=== PATIENT | male | born 1955 | race Caucasian/White ===

== ENCOUNTER 2016-11-13 13:00 | Outpatient (RCR) ==
[2014-12-07 17:34] VITALS: BMI 24.3
--- NOTE | 2016-11-04 09:42 | RS.OPPTDN ---
Subjective Date of Note: 11/04/16 Visit #: 6 Date of Evaluation: 10/20/16 Payer Source: Insurance Treatment Diagnosis: Neck and low back pain Current Subjective/complaints:: Patient reports neck pain has worsened over the past few days. Says that he has had burning to both arms yesterday all day. Pain Assessment - Pain Description Pain Location: neck Current Pain Intensity: "higher today" - Treatment Modality: Ultrasound Parameters/Method Applied: 1.5 w/cm2 x 10 mins to bilateral UT continuous PRIOR to traction Patient Position: Sitting - Heat/Cryotherapy Treatment: Hot Pack (cervical x 20 mins in sitting) - Traction Treatment Method: Mechanical, Intermittent, Cervical Patient Position: Supine Amount of Force Applied: 18-19 Hold Time: 30 Rest Time: 5 Duration of treatment: 20 Traction Treatment Comment: 2 steps Interventions - Exercise/Activities/Manual Therapy Exercises/Activities: Independent with cervical ROM, Reviewed postural techniques and strengthening Manual Therapy: NA HOME EXERCISE PROGRAM: Gentle cervical AROM all directions as tolerated in PAIN FREE ROM,avoid excessive cervical extension. - Charges Total Direct Minutes: 10 Total Treatment Time: 50 Procedures billed for this date of service:: hp, mechanical traction, u/s Assessment: Patient continues with mod to severe neck pain and radicular symptoms of burning to both arms. He maintains mod increase in muscle tone throughout bilateral UT, MT, and LT. Traction providing temporary relief at present. Patient Education: Education of diagnosis, Body/Joint mechanics, Home Exercise Program, Home Safety, Activity Modification, Education of Plan of Care Patient demonstrates compliance with HEP?: Yes Short Term Goals Goal #1: Pt independent and compliant with basic HEP. Goal to be met by: 11/03/16 Progress towards Goal:: Met Goal #2: Muscle tone in bilateral upper traps decreased to minimal. Goal to be met by: 11/03/16 Progress towards Goal:: Progressing Goal #3: Neck pain at rest <5/10. Goal to be met by: 11/03/16 Progress towards Goal:: Partially Met Goal #4: Bilateral SLR 40-45 degrees. Goal to be met by: 11/11/16 (N/A) Penitentiary Goals Goal #1: Pt knows/able to continue HEP to maintain level of function at discharge. Goal to be met by: 11/24/16 Progress towards goal: Partially Met Goal #2: Neck Disability score improved to 12. Goal to be met by: 11/24/16 Goal #3: Pt able to perform home and work activities with minimal neck pain. Goal to be met by: 11/24/16 Progress towards goal: Progressing Goal #4: Pt to demonstrate good postural awareness. Goal to be met by: 11/24/16 Progress towards goal: Partially Met Plan PLAN OF CARE EXPIRES ON:: 11/24/16 ORDER # VISITS AND/OR THROUGH DATE: 11/24/16 PLAN: Continue Plan of Care
--- NOTE | 2016-11-06 14:58 | RS.OPPTDN ---
Subjective Date of Note: 11/06/16 Visit #: 7 Date of Evaluation: 10/20/16 Payer Source: Insurance Treatment Diagnosis: Neck and low back pain Current Subjective/complaints:: Patient reports the neck is about the same,but less frequent pain into the UE's. Pain Assessment - Pain Description Pain Location: neck Pain Description: Dull, Aching Current Pain Intensity: 5/10 - Heat/Cryotherapy Treatment: Hot Pack (20 mins. prior to traction) - Traction Treatment Method: Mechanical, Intermittent, Cervical Patient Position: Supine Amount of Force Applied: 19-20# Hold Time: 30 secs. Rest Time: 5 secs. Duration of treatment: 20 mins. Interventions - Exercise/Activities/Manual Therapy Exercises/Activities: Independent with cervical ROM, Reviewed postural techniques and strengthening Total minutes of Exercise: 0 Manual Therapy: NA Total minutes of Manual Therapy: 0 HOME EXERCISE PROGRAM: Gentle cervical AROM all directions as tolerated in PAIN FREE ROM,avoid excessive cervical extension. - Charges Total Direct Minutes: 0 Total Treatment Time: 40 Procedures billed for this date of service:: hp,traction Assessment: Patient has less radiculopathy in the UE's ,but cervical ROM and upper trap tone unchanged today.He is guarded with cervical motion,and reports the prolonged positions with the neck in extension at work elevate his pain. Patient Education: Body/Joint mechanics, Activity Modification, Education of Plan of Care Patient demonstrates compliance with HEP?: Yes Short Term Goals Goal #1: Pt independent and compliant with basic HEP. Goal to be met by: 11/03/16 Progress towards Goal:: Met Goal #2: Muscle tone in bilateral upper traps decreased to minimal. Goal to be met by: 11/03/16 Progress towards Goal:: No Change Goal #3: Neck pain at rest <5/10. Goal to be met by: 11/03/16 (5/10 today) Progress towards Goal:: Partially Met Goal #4: Bilateral SLR 40-45 degrees. Goal to be met by: 11/11/16 (N/A) [employer] Operations Goals Goal #1: Pt knows/able to continue HEP to maintain level of function at discharge. Goal to be met by: 11/24/16 Progress towards goal: Partially Met Goal #2: Neck Disability score improved to 12. Goal to be met by: 11/24/16 Goal #3: Pt able to perform home and work activities with minimal neck pain. Goal to be met by: 11/24/16 Progress towards goal: Progressing Goal #4: Pt to demonstrate good postural awareness. Goal to be met by: 11/24/16 Progress towards goal: Partially Met Plan PLAN OF CARE EXPIRES ON:: 11/24/16 ORDER # VISITS AND/OR THROUGH DATE: 11/24/16 PLAN: Continue Plan of Care
--- NOTE | 2016-11-10 16:15 | RS.OPPTDN ---
Subjective Date of Note: 11/10/16 Visit #: 8 Date of Evaluation: 10/20/16 Payer Source: Insurance Treatment Diagnosis: Neck and low back pain Current Subjective/complaints:: Reports the neck pain does not vary much , comparing when he has to work or not work.He agrees the traction seems to be the most beneficial.When he exercises ,he reports he has constant grinding in his neck,regardless of which motion. Pain Assessment - Pain Description Pain Location: neck Pain Description: Dull, Aching Current Pain Intensity: 5/10 - Heat/Cryotherapy Treatment: Hot Pack (20 mins. prior to traction) Interventions - Exercise/Activities/Manual Therapy Exercises/Activities: Independent with cervical ROM, Reviewed postural techniques and strengthening Total minutes of Exercise: 0 Manual Therapy: NA Total minutes of Manual Therapy: 0 HOME EXERCISE PROGRAM: Gentle cervical AROM all directions as tolerated in PAIN FREE ROM,avoid excessive cervical extension. - Charges Total Direct Minutes: 0 Total Treatment Time: 40 Procedures billed for this date of service:: hp,traction Assessment: Patient reports the traction gives him temporary relief,but the duration of relief is unpredictable.we discussed initiating D/C plan as his rehab potential is limited,based upon results of previous sessions. Patient Education: Education of diagnosis, Body/Joint mechanics, Home Exercise Program, Home Safety, Activity Modification, Education of Plan of Care Patient demonstrates compliance with HEP?: Yes Short Term Goals Goal #1: Pt independent and compliant with basic HEP. Goal to be met by: 11/03/16 Progress towards Goal:: Met Goal #2: Muscle tone in bilateral upper traps decreased to minimal. Goal to be met by: 11/03/16 Progress towards Goal:: No Change Goal #3: Neck pain at rest <5/10. Goal to be met by: 11/03/16 (5/10 today) Progress towards Goal:: Partially Met Correction Goals Goal #1: Pt knows/able to continue HEP to maintain level of function at discharge. Goal to be met by: 11/24/16 Progress towards goal: Partially Met Goal #2: Neck Disability score improved to 12. Goal to be met by: 11/24/16 Goal #3: Pt able to perform home and work activities with minimal neck pain. Goal to be met by: 11/24/16 Progress towards goal: Progressing Goal #4: Pt to demonstrate good postural awareness. Goal to be met by: 11/24/16 Progress towards goal: Partially Met Plan PLAN OF CARE EXPIRES ON:: 11/24/16 ORDER # VISITS AND/OR THROUGH DATE: 11/24/16 PLAN: Continue Plan of Care
--- NOTE | 2016-11-12 09:30 | RS.OPPTDN ---
Subjective Date of Note: 11/12/16 Visit #: 9 Date of Evaluation: 10/20/16 Payer Source: Insurance Treatment Diagnosis: Neck and low back pain Current Subjective/complaints:: Patient reports very minimal temporary benefit from traction. States today his is hurting mostly in his middle back. States he had a bad day yesterday. States he continues to hurt more after working a 12 hour shift. Pain Assessment - Pain Description Pain Location: neck Pain Description: Dull, Aching Current Pain Intensity: 5/10 - Heat/Cryotherapy Treatment: Hot Pack (x 15 mins to cervical spine in sitting prior to mechanical traction ) - Traction Treatment Method: Mechanical, Intermittent, Cervical Patient Position: Supine Amount of Force Applied: 20 lbs. Hold Time: 30 sec Rest Time: 5 sec Duration of treatment: 20 mins Traction Treatment Comment: no complaints or issues following traction treatment Interventions - Exercise/Activities/Manual Therapy Exercises/Activities: Independent with cervical ROM, Patient given green and blue theraband for scapular retraction and bilateral shoulder extension for postural strengthening. Also demonstrated and advised to perform HS stretching for low back. Total minutes of Exercise: X 8 mins Manual Therapy: NA HOME EXERCISE PROGRAM: Gentle cervical AROM all directions as tolerated in PAIN FREE ROM,avoid excessive cervical extension. Green and blue theraband for scap retraction and bilateral shoulder extension. - Charges Total Direct Minutes: 8 mins Total Treatment Time: 43 Procedures billed for this date of service:: hp, traction, ex Assessment: Patient wants to continue one more visit. Demonstrates receptive attitude toward postural exercises. Patient Education: Education of diagnosis, Body/Joint mechanics, Home Exercise Program, Activity Modification, Education of Plan of Care Patient demonstrates compliance with HEP?: Yes (ROM excercises) Short Term Goals Goal #1: Pt independent and compliant with basic HEP. Goal to be met by: 11/03/16 Progress towards Goal:: Met Goal #2: Muscle tone in bilateral upper traps decreased to minimal. Goal to be met by: 11/03/16 Progress towards Goal:: No Change Goal #3: Neck pain at rest <5/10. Goal to be met by: 11/03/16 (5/10 today) Progress towards Goal:: Partially Met Goal #4: Bilateral SLR 40-45 degrees. Goal to be met by: 11/11/16 (N/A) Comments:: HS stretching exercises given to address this [facility] Goals Goal #1: Pt knows/able to continue HEP to maintain level of function at discharge. Goal to be met by: 11/24/16 Progress towards goal: Partially Met Goal #2: Neck Disability score improved to 12. Goal to be met by: 11/24/16 Goal #3: Pt able to perform home and work activities with minimal neck pain. Goal to be met by: 11/24/16 Progress towards goal: Progressing Goal #4: Pt to demonstrate good postural awareness. Goal to be met by: 11/24/16 Progress towards goal: Partially Met Plan PLAN OF CARE EXPIRES ON:: 11/24/16 ORDER # VISITS AND/OR THROUGH DATE: 11/24/16 PLAN: Continue Plan of Care
--- NOTE | 2016-11-13 14:03 | RS.OPPTDC ---
Date of Discharge: 11/13/16 Date of Evaluation: 10/20/16 Number of Visits: 10 Treatment Diagnosis: Neck and low back pain Current Level of Function: Independent in community ,with chronic neck and back pain. Current Complaints/Gains: Patient agrees with D/C today,still reports temporary relief. Pain Assessment - Pain Description Pain Location: neck Pain Description: Dull, Aching, Chronic Current Pain Intensity: 5/10 Functional Outcome Measure Neck Disability Index: 17 - G Codes & Severity Modifier G Codes & Modifier: NA Source of G Code score: NA Observation - Observation Posture: Forward Head Gait - Gait Pattern General Gait Pattern Observation: No Deviations/Normal - Heat/Cryotherapy Treatment: Hot Pack (20 mins. prior to traction) Interventions - Exercise/Activities/Manual Therapy Exercises/Activities: Independent with cervical ROM, Patient given green and blue theraband for scapular retraction and bilateral shoulder extension for postural strengthening. Also demonstrated and advised to perform HS stretching for low back. Total minutes of Exercise: 0 Manual Therapy: NA Total minutes of Manual Therapy: 0 HOME EXERCISE PROGRAM: Gentle cervical AROM all directions as tolerated in PAIN FREE ROM,avoid excessive cervical extension. Green and blue theraband for scap retraction and bilateral shoulder extension. - Charges Total Direct Minutes: 0 Total Treatment Time: 40 Procedures billed for this date of service:: hp,traction Assessment Assessment: Patient is only getting temporary relief ,agrees with D/C plan today.He has good understanding of HEP ,encouraged to do them as tolerated in PAIN FREE ROM. Short Term Goals Goal #1: Pt independent and compliant with basic HEP. Goal to be met by: 11/03/16 Progress towards Goal:: Met Goal #2: Muscle tone in bilateral upper traps decreased to minimal. Goal to be met by: 11/03/16 Progress towards Goal:: No Change Goal #3: Neck pain at rest <5/10. Goal to be met by: 11/03/16 Progress towards Goal:: No Change Goal #4: Bilateral SLR 40-45 degrees. Goal to be met by: 11/11/16 [employer] Operator Goals Goal #1: Pt knows/able to continue HEP to maintain level of function at discharge. Goal to be met by: 11/24/16 Progress towards goal: Met Goal #2: Neck Disability score improved to 12. Goal to be met by: 11/24/16 Progress towards goal: No Change Goal #3: Pt able to perform home and work activities with minimal neck pain. Goal to be met by: 11/24/16 Progress towards goal: No Change Goal #4: Pt to demonstrate good postural awareness. Goal to be met by: 11/24/16 Progress towards goal: Partially Met Plan Reason for Discharge:: Lack of Progress
== END 2016-12-02 ==
PROVIDERS: ATTEND Nurse Practitioner Family
DX: M51.36 Other intervertebral disc degeneration, lumbar region (principal); M50.320 Other cervical disc degeneration, mid-cervical region, unspecified level; M48.02 Spinal stenosis, cervical region

== ENCOUNTER 2017-12-20 11:58 | Outpatient (CLI) ==
[2014-12-07 17:34] VITALS: BMI 24.3
== END 2017-12-20 11:59 | disposition short-term general hospital (02) ==
LOC: AMBL 11:58
PROVIDERS: ATTEND Internal Medicine
DX: R56.9 Unspecified convulsions (principal); R00.0 Tachycardia, unspecified; C34.90 Malignant neoplasm of unspecified part of unspecified bronchus or lung; C14.0 Malignant neoplasm of pharynx, unspecified; I10 Essential (primary) hypertension; Z79.899 Other long term (current) drug therapy

== ENCOUNTER 2017-12-30 15:24 | Outpatient (CLI) ==
[2014-12-07 17:34] VITALS: BMI 24.3
== END 2017-12-30 15:25 | disposition home or self-care (01) ==
LOC: OUTPT 15:24
PROVIDERS: ATTEND Family Medicine
DX: Z45.2 Encounter for adjustment and management of vascular access device (principal)
CPT/HCPCS: 96523

== ENCOUNTER 2018-07-29 14:52 | Outpatient (CLI) ==
[2014-12-07 17:34] VITALS: BMI 24.3
== END 2018-07-29 15:14 | disposition short-term general hospital (02) ==
LOC: AMBL 14:52
PROVIDERS: ATTEND Emergency Medicine
DX: R41.82 Altered mental status, unspecified (principal); R40.4 Transient alteration of awareness; C71.9 Malignant neoplasm of brain, unspecified; R53.83 Other fatigue; R00.0 Tachycardia, unspecified; R53.1 Weakness; R40.2421 Glasgow coma scale score 9-12, in the field [EMT or ambulance]